=== PATIENT | female | born 1975 | race African-American/Black ===

== ENCOUNTER 2016-12-22 03:06 | Emergency (ER) | payer MEDICAID ==
--- NOTE | 2016-12-22 03:13 | ED Physician Chart ---
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 The pain was unprovoked. She also reports a single episode of associated acute, constant, severe, 10 out of 10, nonradiating chest pain lasted for about 1 hour prior to arrival. Chest pain resolved spontaneously. Has been taking ibuprofen which helps the pain. Has some associated nausea but no vomiting. Also has associated dysuria 2 days. Denies shortness of breath, cough, extremity pain or swelling, palpitations, fevers, headache, acute vision changes, diaphoresis, numbness, tingling, diarrhea, gross hematuria. Historian:: Patient, EMS Review:: Nurse's Note Reviewed, EMS run form Reviewed Review of Systems - Review of Systems Other: Complete system review otherwise unremarkable except as noted in history of present illness. Past Medical History - Past Medical History Past Medical History: No significant medical hx Family History: None Social History: Non Smoker, No Alcohol, No Drug Use, Employed Surgical History: None Psychiatricy History: None Medication: None Family Medical History - Family Member Mother History Unknown: Yes Ethnicity: Non- Living Status: Still Living Physical Exam - Physical Examination Other:: INITIAL VITAL SIGNS: Reviewed by me GENERAL: Alert and interactive. No acute distress HEAD: Head is normocephalic and atraumatic EYES: EOMI. PERRL. No scleral icterus. No conjunctival injection ENT: Moist mucous membranes. NECK: Supple. No masses. Full range of motion RESPIRATORY: No tachypnea. Clear breath sounds bilaterally. No wheezing, rales, or rhonchi CV: Regular rate and rhythm. No murmurs, rubs, or gallops ABDOMEN: Soft, non-distended, non-tender. No guarding. No rebound. No masses. EXTREMITIES: No deformity. No cyanosis. No edema. SKIN: Warm and dry. No obvious rashes. NEUROLOGIC: Alert and oriented. Face is symmetric. Speech is normal. Moves all extremities equally. Motor and sensory distally intact. Labs/Radiology/EKG Results - Lab Results Results: Lab Results 12/22/16 12/22/16 12/22/16 Range/Units 03:15 03:15 03:15 WBC 10.7 (4.8-10.8) Th/cmm RBC 4.96 (3.80-5.10) Mil/cmm Hgb 10.4 L (11.7-15.5) gm/dL Hct 32.9 L (35.0-45.0) % MCV 66.3 L (81-100) fl MCH 20.9 L (27.0-31.0) pg MCHC Differential 31.5 (28.0-36.0) pg RDW 13.7 (11.5-20.0) % Plt Count 231 (150-400) Th/cmm MPV 9.3 fl Band Neutrophils % 0 (0-10) % Neutrophils (Manual) 63 (40-80) % Lymphocytes 24 (20-50) % Monocytes 13 H (2-10) % Eosinophils 0 (0-5) % Basophils 0 (0-3) % Platelet Estimate ADEQUATE (NORMAL) Platelet Morphology NORMAL (NORMAL) Microcytosis 3+ RBC Morph Micro Appear ABNORMAL (NORMAL) PT 10.1 (9.5-11.5) SECONDS INR 0.97 (0.5-1.4) D-Dimer 2320 H (100-400) ng/mL Sodium 129 L (136-145) mEq/L Potassium 3.3 L (3.5-5.1) mEq/L Chloride 98 (98-107) mEq/L Carbon Dioxide 24.4 (21.0-31.0) mEq/L Anion Gap 9.9 (7.0-16.0) BUN 12 (7-25) mg/dL Creatinine 0.9 (0.6-1.2) mg/dL Est GFR ( Amer) > 60.0 (>90) ml/min Est GFR (Non-Af Amer) > 60.0 ml/min BUN/Creatinine Ratio 13.3 Glucose 102 (70-105) mg/dL Calcium 8.9 (8.6-10.3) mg/dL Total Bilirubin 0.4 (0.3-1.0) mg/dL AST 19 (13-39) U/L ALT 20 (7-52) U/L Alkaline Phosphatase 79 (34-104) U/L Troponin I (0.01-0.05) ng/mL B-Natriuretic Peptide (5.0-100.0) pg/mL Total Protein 8.6 H (6.0-8.3) gm/dL Albumin 3.6 L (3.7-5.3) gm/dL Globulin 5.0 gm/dL Albumin/Globulin Ratio 0.7 L (1.0-1.8) Lipase (11-82) U/L Urine Source Urine Color Urine Clarity (CLEAR) Urine pH Ur Specific [place] (1.005-1.030) Urine Protein (NEGATIVE) mg/dL Urine Glucose (UA) (NEGATIVE) mg/dL Urine Ketones (NEGATIVE) mg/dL Urine Blood (NEGATIVE) Urine Nitrate (NEGATIVE) Urine Bilirubin (NEGATIVE) Urine Urobilinogen (0.2 - 1.0) E.U./dL Ur Leukocyte Esterase (NEGATIVE) Urine RBC (0-5) /hpf Urine WBC (0-5) /hpf Ur Epithelial Cells (FEW) /lpf Urine Bacteria (NONE SEEN) /hpf Urine Test Urine Opiates Screen (NEGATIVE) Urine Methadone Screen (NEGATIVE) Ur Barbiturates Screen (NEGATIVE) Ur Tricyclics Screen (NEGATIVE) Ur Phencyclidine Scrn (NEGATIVE) Amphetamines Screen (NEGATIVE) U Methamphetamines Scrn (NEGATIVE) U Benzodiazepines Scrn (NEGATIVE) U Cocaine Metab Screen (NEGATIVE) U Cannabinoids Screen (NEGATIVE) 12/22/16 12/22/16 12/22/16 Range/Units 03:15 03:15 03:25 WBC (4.8-10.8) Th/cmm RBC (3.80-5.10) Mil/cmm Hgb (11.7-15.5) gm/dL Hct (35.0-45.0) % MCV (81-100) fl MCH (27.0-31.0) pg MCHC Differential (28.0-36.0) pg RDW (11.5-20.0) % Plt Count (150-400) Th/cmm MPV fl Band Neutrophils % (0-10) % Neutrophils (Manual) (40-80) % Lymphocytes (20-50) % Monocytes (2-10) % Eosinophils (0-5) % Basophils (0-3) % Platelet Estimate (NORMAL) Platelet Morphology (NORMAL) Microcytosis RBC Morph Micro Appear (NORMAL) PT (9.5-11.5) SECONDS INR (0.5-1.4) D-Dimer (100-400) ng/mL Sodium (136-145) mEq/L Potassium (3.5-5.1) mEq/L Chloride (98-107) mEq/L Carbon Dioxide (21.0-31.0) mEq/L Anion Gap (7.0-16.0) BUN (7-25) mg/dL Creatinine (0.6-1.2) mg/dL Est GFR ( Amer) (>90) ml/min Est GFR (Non-Af Amer) ml/min BUN/Creatinine Ratio Glucose (70-105) mg/dL Calcium (8.6-10.3) mg/dL Total Bilirubin (0.3-1.0) mg/dL AST (13-39) U/L ALT (7-52) U/L Alkaline Phosphatase (34-104) U/L Troponin I 0.02 (0.01-0.05) ng/mL B-Natriuretic Peptide 30.9 (5.0-100.0) pg/mL Total Protein (6.0-8.3) gm/dL Albumin (3.7-5.3) gm/dL Globulin gm/dL Albumin/Globulin Ratio (1.0-1.8) Lipase 11 (11-82) U/L Urine Source CLEAN C Urine Color YELLOW Urine Clarity CLOUDY H (CLEAR) Urine pH 6.0 Ur Specific [place] 1.010 (1.005-1.030) Urine Protein 100 H (NEGATIVE) mg/dL Urine Glucose (UA) NEGATIVE (NEGATIVE) mg/dL Urine Ketones TRACE (NEGATIVE) mg/dL Urine Blood LARGE H (NEGATIVE) Urine Nitrate POSITIVE H (NEGATIVE) Urine Bilirubin NEGATIVE (NEGATIVE) Urine Urobilinogen 0.2 (0.2 - 1.0) E.U./dL Ur Leukocyte Esterase LARGE H (NEGATIVE) Urine RBC 25-50 H (0-5) /hpf Urine WBC >100 H (0-5) /hpf Ur Epithelial Cells MODERATE (FEW) /lpf Urine Bacteria MANY (NONE SEEN) /hpf Urine Test Urine Opiates Screen (NEGATIVE) Urine Methadone Screen (NEGATIVE) Ur Barbiturates Screen (NEGATIVE) Ur Tricyclics Screen (NEGATIVE) Ur Phencyclidine Scrn (NEGATIVE) Amphetamines Screen (NEGATIVE) U Methamphetamines Scrn (NEGATIVE) U Benzodiazepines Scrn (NEGATIVE) U Cocaine Metab Screen (NEGATIVE) U Cannabinoids Screen (NEGATIVE) 12/22/16 12/22/16 Range/Units 03:25 03:25 WBC (4.8-10.8) Th/cmm RBC (3.80-5.10) Mil/cmm Hgb (11.7-15.5) gm/dL Hct (35.0-45.0) % MCV (81-100) fl MCH (27.0-31.0) pg MCHC Differential (28.0-36.0) pg RDW (11.5-20.0) % Plt Count (150-400) Th/cmm MPV fl Band Neutrophils % (0-10) % Neutrophils (Manual) (40-80) % Lymphocytes (20-50) % Monocytes (2-10) % Eosinophils (0-5) % Basophils (0-3) % Platelet Estimate (NORMAL) Platelet Morphology (NORMAL) Microcytosis RBC Morph Micro Appear (NORMAL) PT (9.5-11.5) SECONDS INR (0.5-1.4) D-Dimer (100-400) ng/mL Sodium (136-145) mEq/L Potassium (3.5-5.1) mEq/L Chloride (98-107) mEq/L Carbon Dioxide (21.0-31.0) mEq/L Anion Gap (7.0-16.0) BUN (7-25) mg/dL Creatinine (0.6-1.2) mg/dL Est GFR ( Amer) (>90) ml/min Est GFR (Non-Af Amer) ml/min BUN/Creatinine Ratio Glucose (70-105) mg/dL Calcium (8.6-10.3) mg/dL Total Bilirubin (0.3-1.0) mg/dL AST (13-39) U/L ALT (7-52) U/L Alkaline Phosphatase (34-104) U/L Troponin I (0.01-0.05) ng/mL B-Natriuretic Peptide (5.0-100.0) pg/mL Total Protein (6.0-8.3) gm/dL Albumin (3.7-5.3) gm/dL Globulin gm/dL Albumin/Globulin Ratio (1.0-1.8) Lipase (11-82) U/L Urine Source Urine Color Urine Clarity (CLEAR) Urine pH Ur Specific [place] (1.005-1.030) Urine Protein (NEGATIVE) mg/dL Urine Glucose (UA) (NEGATIVE) mg/dL Urine Ketones (NEGATIVE) mg/dL Urine Blood (NEGATIVE) Urine Nitrate (NEGATIVE) Urine Bilirubin (NEGATIVE) Urine Urobilinogen (0.2 - 1.0) E.U./dL Ur Leukocyte Esterase (NEGATIVE) Urine RBC (0-5) /hpf Urine WBC (0-5) /hpf Ur Epithelial Cells (FEW) /lpf Urine Bacteria (NONE SEEN) /hpf Urine Test NEGATIVE Urine Opiates Screen NEGATIVE (NEGATIVE) Urine Methadone Screen NEGATIVE (NEGATIVE) Ur Barbiturates Screen NEGATIVE (NEGATIVE) Ur Tricyclics Screen NEGATIVE (NEGATIVE) Ur Phencyclidine Scrn NEGATIVE (NEGATIVE) Amphetamines Screen NEGATIVE (NEGATIVE) U Methamphetamines Scrn NEGATIVE (NEGATIVE) U Benzodiazepines Scrn NEGATIVE (NEGATIVE) U Cocaine Metab Screen NEGATIVE (NEGATIVE) U Cannabinoids Screen NEGATIVE (NEGATIVE) - Radiology Results Results: CT abdomen and pelvis Enlarged lobulated uterus likely due to presence of multiple fibroids. One of the fibroids is partially calcified. Consider further evaluation with an emergent pelvic sonogram or MRI for further characterization. A large uterus exerts mass effect upon adjacent abdominal structures, displacing bowel loops laterally and superiorly. Additionally there is mild bilateral hydronephrosis right worse than left. Likely due to mass effect on the mid ureters. No evidence of obstructing renal calculi. Mild urinary bladder wall thickening. - EKG Interpretations Comments:: 12-lead EKG Interpretation by Jl West MD: Normal Sinus Rhythm with ventricular rate of 88 beats per minute Normal axis Normal intervals No acute ST or T wave changes. No obvious STEMI ED Septic Shock - . 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 She also reports dysuria 2 days. She also had some left chest pain that lasted for about an hour prior to arrival. Chest pain resolved on its own Patient's labs indicate UTI. D-dimer elevated but likely due to infection. No evidence of lower extremity edema or pain. Patient has multiple fibroids of the uterus. Uterus is very enlarged. It is causing mass effect on the ureters causing obstructive uropathy with underlying UTI. She did receive IV Toradol, normal saline and Rocephin. Patient will need further workup and treatment from urology. Likely will need ureteral stenting due to mass effect of the uterus on the ureters especially on the right. Will also likely need a TRAINING FACILITATOR consult. Patient will need transfer as we do not have urology here at this hospital. Reassessment Condition:: Improved - Diagnosis Diagnosis:: Acute right flank pain due to acute right sided obstructive uropathy Acute UTI, site unspecified, with hematuria Acute bilateral hydronephrosis Uterine fibroids - Patient Disposition Discharge/Transfer:: Acute Care (other hosp) Discussion with Medical Provider:: Discussed with transfer center. Patient will be transferred for higher level of care. Likely [facility] Transport Method:: BLS Time:: 05:58 Condition at Disposition:: Stable
[2016-12-22] MEDS ORDERED: Sodium Chloride 0.9% 500 ML IV ONE (03:37)
[2016-12-22 03:45] LABS: ALB/GLOB RATIO 0.7 (1.0-1.8); ALKALINE PHOSPHATASE 79 U/L (34-104); ANION GAP 9.9 (7.0-16.0); BILIRUBIN,TOTAL 0.4 mg/dL (0.3-1.0); BUN - UREA NITROGEN 12 mg/dL (7-25); BUN/CREATININE RATIO 13.3; CALCIUM SERUM 8.9 mg/dL (8.6-10.3); CARBON DIOXIDE 24.4 mEq/L (21.0-31.0); CHLORIDE 98 mEq/L (98-107); CREATININE - SERUM 0.9 mg/dL (0.6-1.2); GLUCOSE 102 mg/dL (70-105); POTASSIUM SERUM 3.3 mEq/L (3.5-5.1); SGOT 19 U/L (13-39); SGPT/ALT 20 U/L (7-52); SODIUM SERUM 129 mEq/L (136-145)
[2016-12-22 03:46] LABS: TROP I 0.02 ng/mL (0.01-0.05)
[2016-12-22 03:57] LABS: MEAN PLATELET VOLUME 9.3 fl; RED BLOOD COUNT 4.96 Mil/cmm (3.80-5.10); RED CELL DISTRIBUTION WIDTH 13.7 % (11.5-20.0)
[2016-12-22 03:59] LABS: HEMATOCRIT 32.9 % (35.0-45.0); HEMOGLOBIN 10.4 gm/dL (11.7-15.5); MEAN CORPUSCULAR HEMOGLOBIN 20.9 pg (27.0-31.0); MEAN CORPUSCULAR HGB CONC 31.5 pg (28.0-36.0); PLATELET COUNT 231 Th/cmm (150-400); WHITE BLOOD COUNT 10.7 Th/cmm (4.8-10.8)
[2016-12-22 04:00] LABS: INR 0.97 (0.5-1.4); PROTHROMBIN TIME (TEST) 10.1 SECONDS (9.5-11.5)
[2016-12-22 04:07] LABS: AMPHETAMINE URINE NEGATIVE (NEGATIVE); BARBITURATES URINE NEGATIVE (NEGATIVE); METHADONE URINE NEGATIVE (NEGATIVE)
[2016-12-22 04:13] LABS: URINE BILIRUBIN NEGATIVE (NEGATIVE); URINE BLOOD LARGE (NEGATIVE); URINE COLOR YELLOW; URINE GLUCOSE (UA) NEGATIVE (NEGATIVE); URINE KETONE TRACE mg/dL (NEGATIVE); URINE PROTEIN 100 mg/dL (NEGATIVE); URINE UROBILINOGEN 0.2 E.U./dL (0.2 - 1.0)
[2016-12-22 04:14] LABS: URINE RBC 25-50 /hpf (0-5); URINE WBC >100 /hpf (0-5)
[2016-12-22 04:15] LABS: URINE BACTERIA MANY /hpf (NONE SEEN); URINE EPITHELIAL CELLS MODERATE /lpf (FEW)
[2016-12-22 04:21] LABS: MEAN CELL VOLUME 66.3 fl (81-100)
[2016-12-22 05:02] LABS: BAND NEUTROPHILE 0 % (0-10); BASOPHIL 0 % (0-3); EOSINOPHIL 0 % (0-5); MICROCYTOSIS 3+; NEUTROPHILS 63 % (40-80); PLATELET ESTIMATE ADEQUATE (NORMAL); PLATELET MORPHOLOGY NORMAL (NORMAL); TOTAL CELLS COUNTED 100
[2016-12-22 05:08] LABS: BNP 30.9 pg/mL (5.0-100.0)
[2016-12-22] MEDS ORDERED: cefTRIAXone 1 GM in Sodium Chloride 0.9% 50 ML IV ONE (05:41)
[2016-12-22] MEDS ORDERED: Sodium Chloride 0.9% 1,000 ML IV ONE (10:04)
--- NOTE | 2016-12-22 11:12 | Diagnostic Imaging Report ---
CT abdomen and pelvis without intravenous contrast Indication: Right flank pain radiating to the groin Comparison: None, Technique: Axial images were obtained from the lung bases to the bilateral proximal femurs without IV contrast. Coronal reconstructions were made. total DLP: [id number], [id number] FINDINGS: Hypoventilatory and atelectatic changes of the lungs are noted. Evaluation of the solid organs is limited due to lack of IV contrast. No evidence of focal hepatic or splenic lesions. For evaluation of pancreas. No focal adrenal areas. There is moderate right hydronephrosis and mild left hydronephrosis. There is a urinary mild bladder wall thickening. No radiopaque renal stones identified. Severely enlarged uterus is seen with fibrotic changes and area of calcification along the fundal aspect measuring 2.5 cm. There is associated mass effect upon the adjacent organs. Moderate stool is seen with gas-filled loops of bowel. Appendix is not visualized. No evidence of free air or fluid. Nonenlarged retroperitoneal lymph nodes are noted. Osseous structures demonstrate no acute abnormalities. IMPRESSION: Markedly enlarged lobulated uterus with fibroid changes including calcification along the superior aspect of the fibroid uterus. There is associated mass effect upon the adjacent organs. There is moderate right and mild left hydronephrosis. No radiopaque renal or ureteral stones identified. Additional mass effect upon the urinary bladder is also noted. Mild prominence urinary bladder wall is also noted. Please correlate for underlying infectious or inflammatory process. Moderate stool throughout the colon gas-filled loops of bowel. No evidence of free fluid.
[2016-12-22] MEDS ORDERED: Potassium Chloride 20 mEq ER Tab PO ONE ×2 (12:40→12:46)
== END 2016-12-22 13:19 | disposition left against medical advice (07) ==
LOC: ER 03:06
DX: N13.9 Obstructive and reflux uropathy, unspecified (principal); N39.0 Urinary tract infection, site not specified; N13.30 Unspecified hydronephrosis; D28.2 Benign neoplasm of uterine tubes and ligaments; R31.9 Hematuria, unspecified
CPT/HCPCS: 99285; 96365; 96375; 93005; 74176; 84484; 83880; 36415; 85379; 83605; 80307; 85007; 85027; 85610; 87086; 81001; 81025; 83690; 80053; 87040 ×2; J1885; J2405; J0696; J7040; J7030; Z7610